=== PATIENT | female | born 2000 | race Caucasian/White ===

== ENCOUNTER 2024-05-23 11:39 | Outpatient (AMB) | payer OTHER, SELFPAY ==
--- NOTE | 2024-05-23 11:46 | AM.OFFWIN_ITS ---
Intake Vital Signs 05/23/24 11:47 Height 5 ft 3.11 in Weight 131 lb 4 oz BMI 23.2 BP 100/60 Blood Pressure Location Rt brachial Position Sitting Respiration 18 Pulse 80 Pulse Source Palpation Temp 98.3 F Temp Source Oral Intake Visit Reasons: Thyroid issues Intake Note: thyroid issuses Patient Tobacco Use Status: Never used Tobacco Is last menstrual period known: Yes Last menstrual period: 05/14/24 Post menopausal: No Patient : No Allergies No Known Allergies Allergy (Verified 05/23/24 11:52) Medication List - Last Reconciled 05/23/24 by LADONNA Rodriguez No Known Home Meds Do you need a note to return to daycare/school/sports/work: No HPI HPI Comments History of Present Illness Details Very pleasant 23-year-old female here today with concerns for enlarged thyroid. Reports that she noted to be mildly enlarged about 1 year ago. However over the last few weeks she reports that it has gotten a little bit bigger. She is having some pain. At times she can feel like she was suffocating. However this is short-lived. She is able to maintain her airway, able to swallow. She does have a family history of thyroid disease in her mother. She denies history of thyroid cancer. She is in between Pediatrics and adult primary care. She did call her apparel pattern maker who advised her to come to the walk-in today. She is not on any medications. Exam Awake alert oriented, no acute distress No lid lag Pharynx within normal limits Trachea midline, thyromegaly, nontender Regular rate and rhythm Plan TSH with reflex T4 today, return to the office next week to establish care and to review the results. Ultrasound of the thyroid will likely need to be ordered at that time as well. Can not do this at the walk-in clinic today. Patient will be called with the TSH results. If a prescription is needed she has asked this to be sent to the [facility] in [place] This note is constructed using voice recognition software. While every effort has been made to ensure accuracy in emergency room nurse, still errors may have been included Sometimes, these errors may affect the content or meaning of the given sentence . 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 Plan . Orders: Orders TSH reflex Free T4 Today E01.0 - Iodine-deficiency related diffuse (endemic) goiter Patient Instructions: Walk-In Care (Urgent Care): We Make it Easy Walk-in for urgent medical issues such as: ? Seasonal Allergies ? Insect Bites ? Cough ? Diarrhea ? Acute Asthma Attacks ? Back, Knee or Joint Pain ? Ear Infection ? Fever without a Rash ? Headaches ? Nausea ? [place], Rash or Skin Irritation ? Sore Throat ? Sports Physicals ? Vomiting Most insurances are accepted. Patients do not need to be part of the [facility] to seek care at the walk-in clinic. Locations [facility] , [place] [address] ? [phone] [facility] Walk-In Care in [place] provides services to ages 18 and over. Open Wednesday-Wednesday: 8 a.m. to 5 p.m. and Wednesday: 9 a.m. to 3 p.m.* *Hours may vary due to staffing availability. To confirm Walk-In Care hours in [place], please call [phone]. [address] [place] [id number] ? [phone] [facility] Walk-In Care in [place] provides services to ages 12 and over. Open Wednesday-Wednesday: 8 a.m. to 5 p.m. Hours may vary due to staffing availability. To confirm Walk-In Care hours in [place], please call [phone]. LABORATORY SERVICES: [facility] ? Primary Location [address] [place] [address] Wednesday through Wednesday 6:00 AM ? 5:00 PM Wednesday 7:00 AM ? 11:00 AM* [phone] The [facility] is centrally located near the front entrance of the [facility] for easy outpatient access. Convenient parking is provided for outpatients. *Hours may vary due to staffing availability. To confirm Laboratory hours for any location, please call [phone]. Offsite Location For your convenience, we offer offsite laboratory draw stations at the following locations: [address], [place] ? [facility] [address], [address], [place] Wednesday through Wednesday 7:30 AM ? 1:00 PM* [phone] *Hours may vary due to staffing availability. To confirm Laboratory hours for any location, please call [phone]. [place] ? [facility] [address] [facility] Wednesday through Wednesday 6:00 AM ? 3:30 PM* Wednesday 6:30 AM ? 3 PM* [phone] *Hours may vary due to staffing availability. To confirm Laboratory hours for any location, please call [phone] [place] [address] Wednesday through Wednesday 7:30 AM ? 4:00 PM* [phone] *Hours may vary due to staffing availability. To confirm Laboratory hours for any location, please call [phone] [place] [address] Wednesday through 9:00 AM ? 4:00 PM* *Hours may vary due to staffing availability. To confirm Laboratory hours for any location, please call [phone]. Appointments are not necessary. Walk-ins are welcome. Like all the departments throughout the [facility], our Lab undergoes frequent reviews to ensure the quality and accuracy of test results, and our staff takes special pride in its status as a nationally accredited facility. Patient Portal: ONE PATIENT. ONE RECORD. BETTER CARE. [facility] has a fully integrated, cutting- edge mobile electronic health information system that has revolutionized the way we care for our patients and manage our organization. This system improves communication and coordination enabling us to provide safe, higher-quality care, and an overall positive experience for staff and patients. Our first priority, as always, is to deliver the highest quality care possible. The system is running in the background supporting that priority. This portal is for all [facility] services and practices. If you are experiencing any technical difficulties with enrolling or logging into the Patient Portal please complete the [facility] Patient Portal Technical Support Form. [facility] now offers a new secure on-line interactive tool for patients to review their health information ? ?Patient Portal. This interactive web portal will enable patients and their families to take an active role in their care by providing easy, secure access to their health information via the internet. The Patient Portal provides patients with instant access to their health information, including laboratory results, medications, allergies, demographic information, visit history, and more. In addition to managing their own care, parents and health care proxies with authorized consent will appreciate the ability to access the records of those individuals for whom they provide care. Please note: if you wish to gain access (Proxy) to another patient?s portal, you will be required to come to the Medical Records Department in person at [facility]. Both the patient giving proxy access and the proxy will need to provide photo identification and complete the appropriate authorization. The Patient Portal also allows track their appointments online. The [facility] Patient Portal also saves patients time by allowing them to submit updates to their demographic and contact information prior to their visits. Portal email notifications will also alert patients to any new activity on their portal, such as test results and new appointments. In order to initially enroll in the [facility] Patient Portal, you will need to enter some required information including the following: * your [facility] Medical Record number * your personal home email address * name * date of Please note: In order to enroll in the [facility] Patient Portal, we need to have your email address on file in your electronic medical record. ?The email address needs to be specific for one person (yourself) in order for your Portal enrollment to be successful. ?You can update your email address in person with our Registration staff when you are registering for a hospital visit. ?Otherwise, you will need to come to the Health Information Management (Medical Records) Department at [facility]. ?We are open from Wednesday ? Wednesday from 7:30 a.m. ? 4:30 p.m. ?You will be required to present a photo id. Once you have successfully enrolled in the Patient Portal, you will receive a one-time user id and password for the Portal, sent to your email address. ?This will allow you to log into the Patient Portal within 99 hrs and reset your own logon id and password, and define personal security questions. ?Once your permanent login and password have been set, you can log into the [facility] Patient Portal at any time via the blue button above or from the Portal Logon button on any page of the [facility] website. [facility] encourage all of our patients to enroll in Patient Portal as it presents a valuable opportunity for patients and their families to actively participate in their care and stay healthy Welcome to [facility]. ?We look forward to working with you. Coding Level of Care Code Est Pt Level 4 (58936) Diagnoses Thyromegaly E01.0
[2024-05-23 11:47] VITALS: BP 100/60; PULSE 80; RESP 18; TEMP 36.8; BMI 23.2
== END 2024-05-23 11:59 | disposition home or self-care (01) ==
PROVIDERS: Visit Provider Nurse Practitioner Family
DX: E01.0 Iodine-deficiency related diffuse (endemic) goiter (principal)
CPT/HCPCS: 99214

== ENCOUNTER 2024-05-23 12:24 | Outpatient (REF) | payer OTHER, SELFPAY ==
[2024-05-23 18:36] LABS: TSH reflex Free T4 0.15 uIU/mL (0.32-4.0)
[2024-05-23 19:29] LABS: Free T4 (Free Thyroxine) 1.07 ng/dL (0.71-1.85)
== END 2024-05-23 12:25 | disposition home or self-care (01) ==
LOC: HO.WFDLDS 12:24
PROVIDERS: Visit Provider Nurse Practitioner Family
DX: E01.0 Iodine-deficiency related diffuse (endemic) goiter (principal)
CPT/HCPCS: 36415; 84439; 84443

== ENCOUNTER 2024-05-26 12:26 | Outpatient (REF) | payer OTHER, SELFPAY ==
[2024-05-27 07:38] LABS: Triiodothyronine T3 Total 106 ng/dL (76-181)
[2024-05-27 09:49] LABS: Thyroid Peroxidase Antibodies 1 IU/mL (<9)
[2024-05-29 21:18] LABS: Thyrotropin Receptor Antibody <1.00 IU/L (<=2.00)
== END 2024-05-26 12:27 | disposition home or self-care (01) ==
LOC: HO.WFDLDS 12:26
PROVIDERS: Visit Provider Nurse Practitioner Family
DX: E01.0 Iodine-deficiency related diffuse (endemic) goiter (principal)
CPT/HCPCS: 36415; 83520; 84480; 86376

== ENCOUNTER 2024-05-31 07:54 | Outpatient (AMB) | payer OTHER, SELFPAY ==
--- NOTE | 2024-05-31 08:01 | MHC.PC.OV ---
Vital Signs 05/31/24 08:08 Height 5 ft 2.99 in Weight 129 lb 8 oz BMI 22.9 BP 112/74 Blood Pressure Location Lt brachial Position Sitting Respiration 12 Pulse 72 Pulse Source Pulse Oximeter Temp 98.4 F Temp Source Oral Pulse Oximetry (%) 99 Oxygen Delivery Method Room Air Intake Visit Reasons: est care/ follow up thyroid Intake Note: New patient visit Boom Cat Operator Required: No Is last menstrual period known: Yes Last menstrual period: 06/12/24 Allergies No Known Allergies Allergy (Verified 05/31/24 08:06) Medication List - Last Reconciled 05/31/24 by Katerin Dong PA-C No Known Home Meds Tobacco use date assessed: 05/31/24 Dental Screening Dental Screen Date: 05/31/24 Did you have a dental visit in the last 12 months?: Yes Did you have a dental problem in the last 6 months where you did not have access to dental care?: No Was dental information given to patient?: Patient has dentist HPI est care/ follow up thyroid HPI Details Patient is a 23-year-old female who presents today to [facility]. Her last physical was with her textile colorist formulator within the year and she reports as normal . She states she did not have labs. Endo: Last TSH was low. Her antibodies were negative. She denies any weight loss, anxiety, fatigue, diarrhea, or palpitations. She does endorse a globus sensation that started about a year ago. She states at the time she did tell her textile colorist formulator about it in had some testing ordered but never did it. She called her textile colorist formulator about 2 weeks ago to tell her about the increase size of her neck/throat and they instructed her to go to a walk-in. She does feel like her thyroid has enlarged over the last year. She can feel it whenever she swallows and she can sometimes feel it at night when she is lying down. It feels like there is something in her throat. Denies any difficulty swallowing, dysphagia, difficulty breathing or witnessed apneic events. -She was sick with a uri prior to these sx being exacerbated and right before her labs. 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 1. Little interest or pleasure in doing things: not at all 2. Feeling down, depressed, or hopeless: not at all 3. Trouble falling or staying asleep, or sleeping too much: not at all 4. Feeling tired or having little energy: not at all 5. Poor appetite or overeating: not at all 6. Feeling bad about yourself - or that you are a failure or have let yourself or your family down: not at all 7. Trouble concentrating on things, such as reading the newspaper or watching television: not at all 8. Moving or speaking so slowly that other people could have noticed. Or the opposite - being so fidgety or restless that you have been moving around a lot more than usual: not at all 9. Thoughts that you would be better off or of hurting yourself in some way: not at all Total score: 0 Depression Screening Interpretation: Negative Depression Screening Done: Yes 56693 - PHQ-9 Billing: Yes Source: Developed by Drs. Darrius Ryan, Shilpi Seals, Quinten Traylor and colleagues, with an educational claude from [employer]. Thrive Questionnaire Date Thrive assessed: 05/31/24 I am a: Patient What is your living situation today?: I have a steady place to live Within the past 12 months, did the food you bought not last and you didn't have the money to get more?: Never true Within the past 12 months, did you worry whether your food would run out before you got money to buy more?: Never true Do you have trouble paying for medicines?: No Do you have trouble getting transportation to medical appointments?: No Do you have trouble paying your heating and electricity bill?: No Do you have trouble taking care of your child, family member or friend?: No Do you have trouble with day-to-day activities such as bathing, preparing meals, shopping, managing finances, etc.?: No Are you currently unemployed and looking for a job?: No Are you interested in more education?: Yes Please select the resources that you would like help with: Education Currently or been in a relationship where the following occur: No concerns reported THRIVE Score: 0 AUDIT C Alcohol Use Questionnaire (AUDIT-C) 1. How often do you have a drink containing alcohol?: Never 3. How often do you have six or more drinks on one occasion?: Never Total Score: 0 GABO-7 AMB Questionnaire GABO-7 Feeling nervous, anxious, or on edge: 0 = Not at all Not being able to stop or control worryin = Not at all Worrying too much about different things: 0 = Not at all Trouble relaxin = Not at all Being so restless that it is hard to sit still: 0 = Not at all Becoming easily annoyed or irritable: 0 = Not at all Feeling afraid as if something awful might happen: 0 = Not at all Total GABO-7 score (0-4 normal; 5-9 mild; 10-14 moderate; 15-21 severe): 0 Source: Developed by Drs. Darrius Ryan, Shilpi Seals, Quinten Traylor and colleagues, with an educational claude from [employer]. GABO-7 Assessment Billing GABO-7 Assessment Tool: GABO-7 Assessment 17783 Physical exam (Primary Care) Vital Signs: Last Vital Signs Temp 98.4 F 05/31/24 08:08 Pulse 72 05/31/24 08:08 Resp 12 05/31/24 08:08 BP 112/74 05/31/24 08:08 Pulse Ox 99 05/31/24 08:08 Oxygen Delivery Method Room Air 05/31/24 08:08 BMI result Body Mass Index 22.9 Tobacco/Smoking Status: Tobacco use Status Tobacco use date assessed 05/31/24 05/31/24 08:11 Patient Tobacco Use Status Never used Tobacco 05/31/24 08:04 e-Cigarette/Vaping Use Never Used 05/31/24 08:11 PHQ-9: PHQ-9 Score PHQ-9: Total score 0 05/31/24 08:19 Depression Screening Interpretation: Negative Thrive Assessment: Date of Thrive Assessment Date Thrive assessed 05/31/24 05/31/24 08:19 Currently or been in a relationship where the following occur: No concerns reported Const Orientation/consciousness: patient oriented x3 HENMT Ears: hearing grossly normal bilaterally Neck Thyroid: diffusely enlarged Lymphatic: no lymphadenopathy noted Resp Auscultation: clear to auscultation bilaterally Cardio Rate: regular rate Rhythm: regular rhythm Heart sounds: S1 normal heart sound present and S2 normal heart sound present GI Inspection: Yes normal to inspection Palpation (GI): Soft to palpation and Other GI palpation findings present (nontender, no cva tenderness) Auscultation: normoactive bowel sounds Rectal Exam - Female: deferred Skin General skin exam: no rashes or lesions noted Neuro General: patient oriented x3, gait normal and no focal motor deficits Results Reviewed Results Reviewed: Laboratory Tests 05/23/24 05/26/24 12:25 12:28 TSH 0.15 L Free T4 1.07 Total T3 106 Assessment and Plan Assessment & Plan (1) 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 will follow up pending tests. she will follow up sooner if anything worsens or changes. (2) Screening cholesterol level: Code(s): Z13.220 - Encounter for screening for lipoid disorders Plan: lipids ordered (3) Encounter to establish care: Code(s): Z76.89 - Persons encountering health services in other specified circumstances Plan: hm reviewed Orders: Orders Thyroid Stimulating Hormone Today E01.0 - Iodine-deficiency related diffuse (endemic) goiter Comprehensive [place]. Panel Fast Today E01.0 - Iodine-deficiency related diffuse (endemic) goiter US thyroid Today E01.0 - Iodine-deficiency related diffuse (endemic) goiter Free T4 (Free Thyroxine) Today E01.0 - Iodine-deficiency related diffuse (endemic) goiter Lipid Panel Today E01.0 - Iodine-deficiency related diffuse (endemic) goiter Complete Blood Count Auto Diff Today E01.0 - Iodine-deficiency related diffuse (endemic) goiter Coding Level of Care Code New Pt Level 3 (45863) Complex EM visit Add On G2211 Diagnoses Thyromegaly E01.0 Screening cholesterol level Z13.220 Encounter to establish care Z76.89 Additional Codes GABO-7 Assessment Billing - GABO-7 Assessment Tool: GABO-7 Assessment 35488 ([id number])
[2024-05-31 08:08] VITALS: BP 112/74; PULSE 72; RESP 12; TEMP 36.9; O2SAT 99; BMI 22.9
== END 2024-05-31 08:33 | disposition home or self-care (01) ==
PROVIDERS: PCP Physician Assistant; Visit Provider Physician Assistant
DX: E01.0 Iodine-deficiency related diffuse (endemic) goiter (principal); Z13.220 Encounter for screening for lipoid disorders; Z76.89 Persons encountering health services in other specified circumstances
CPT/HCPCS: 99213; G2211

== ENCOUNTER 2024-05-31 08:34 | Outpatient (REF) | payer OTHER, SELFPAY ==
[2024-05-31 11:09] LABS: MANUAL DIFF FLAG NO
[2024-05-31 11:28] LABS: Basophils Percent Auto 0.5 % (0-2); Eosinophils Absolute Auto 0.2 X10*3/uL (0.0-0.4); Eosinophils Percent Auto 2.7 % (0-4); Hematocrit 37.2 % (37.0-47.0); Hemoglobin 12.4 g/dl (12.0-16.0); Lymphocytes Absolute Auto 2.6 X10*3/uL (1.2-4.9); Lymphocytes Percent Auto 40.8 % (20-40); Mean Corpuscular HGB Conc 33.3 g/dl (31.0-35.0); Mean Corpuscular Hemoglobin 28.4 pg (27.0-33.0); Mean Corpuscular Volume 85.3 fL (80.0-98.0); Mean Platelet Volume 10.8 fL (9.4-12.3); Monocytes Absolute Auto 0.5 X10*3/uL (0.1-1.2); Monocytes Percent Auto 8.3 % (2-11); Neutrophils Percent Auto 47.7 % (45-73); Platelet Count 286 X10*3/uL (160-400); Red Blood Count 4.36 X10*6/uL (4.20-5.50); Red Cell Distribution Width 12.3 % (11.0-16.0); White Blood Count 6.3 X10*3/uL (4.8-10.8)
[2024-05-31 11:53] LABS: Alanine Aminotransferase 15 U/L (0-31); Albumin Level 4.4 g/dL (3.5-5.0); Alkaline Phosphatase 50 U/L (39-117); Anion Gap 10 (12-20); Aspartate Amino Transferase 17 U/L (5-31); Bilirubin Total 0.4 mg/dL (0.0-1.0); Blood Urea Nitrogen 12 mg/dL (9-16); Calcium 9.3 mg/dL (8.4-10.2); Carbon Dioxide 28 mmol/L (22-29); Chloride 108 mmol/L (96-108); Cholesterol 201 mg/dL (<200); Estimated Glomerular Filt Rate > 60; Glucose Fasting 84 mg/dL (60-99); HDL Cholesterol 49 mg/dL (>40); LDL Cholesterol Calculated 138 mg/dL (<100); Potassium 3.7 mmol/L (3.3-5.1); Sodium 142 mmol/L (135-145); Total Protein 7.2 g/dL (6.5-8.0); Triglycerides 71 mg/dL (<150)
[2024-05-31 11:59] LABS: Free T4 (Free Thyroxine) 0.93 ng/dL (0.71-1.85); Thyroid Stimulating Hormone 0.28 uIU/mL (0.32-4.0)
== END 2024-05-31 08:35 | disposition home or self-care (01) ==
LOC: HO.WFDLDS 08:34
PROVIDERS: Visit Provider Physician Assistant
DX: E01.0 Iodine-deficiency related diffuse (endemic) goiter (principal)
CPT/HCPCS: 36415; 80053; 80061; 84439; 84443; 85025

== ENCOUNTER 2024-06-14 08:07 | Outpatient (REF) | payer OTHER, SELFPAY ==
--- NOTE | ~2024-06-14 | US_ITS ---
EXAMINATION: US THYROID CLINICAL INFORMATION: Goiter. COMPARISON: None available. TECHNIQUE: Linear transducer grayscale and color Doppler examination with attention to the region of the thyroid. FINDINGS: SIZE: Measurements of the thyroid lobes and nodules are given in sagittal, anteroposterior and transverse dimensions respectively. Right Thyroid Lobe: 5.7 x 1.5 x 1.9 cm, volume 7.7 mL. Parenchyma: The gland echotexture is mildly heterogeneous. Thyroid vascularity is normal. Left Thyroid Lobe: 5.7 x 1.4 x 2.0 cm, volume 7.7 mL. Parenchyma: The gland echotexture is mildly heterogeneous. Thyroid vascularity is normal. Isthmus: 0.4 cm in maximum AP dimension. Estimated total number of nodules greater than or equal to 1 cm: None. Master Baker nodules are described as follows: 1. Location: Right mid to lower. Size: 0.5 x 0.3 x 0.5 cm, volume 0.03 mL. Nodule characteristics: Composition: Spongiform (0). Echogenicity: Shape: Margins: Echogenic Foci: ACR TI-RADS total points: 0 ACR TI-RADS category: 1 2. Location: Right lower. Size: 0.4 x 0.3 x 0.4 cm, volume 0.03 mL. Nodule characteristics: Composition: Spongiform (0). Echogenicity: Shape: Margins: Echogenic Foci: ACR TI-RADS total points: 0 ACR TI-RADS category: 1 NODES: Right cervical node measures 2.0 x 0.3 x 1.2 cm. US/US thyroid IMPRESSION: Right thyroid nodules, largest 0.5 cm TR 1. Right cervical node measures 2.0 x 0.3 x 1.2 cm. ACR TI-RADS RECOMMENDATION REFERENCE: Ultrasound-guided fine-needle aspiration, followup ultrasound, no further follow up. * TR1 (0 point) and TR2 (2 points): No FNA or follow up. * TR3 (3 points): FNA if more than or equal to 2.5 cm in maximum dimension, followup ultrasound in 1, 3 and 5 years if 1.5 to 2.4 cm in maximum dimension. * TR4 (4-6 points): FNA if more than or equal to 1.5 cm in maximum dimension, followup ultrasound in 1, 2, 3 and 5 years if 1 to 1.4 cm in maximum dimension. * TR5 (more than or equal to 7 points): FNA if more than or equal to 1 cm in maximum dimension, followup ultrasound every year for 5 years if 0.5 to 0.9 cm in maximum dimension. * TR3, TR4 or TR5 nodules that are below the size threshold for followup receive no follow up. Electronically signed by: Isela Dc MD 06/28/2024 10:22 AM EDT
== END 2024-06-14 08:08 | disposition home or self-care (01) ==
LOC: HO.US 08:07
PROVIDERS: PCP Physician Assistant; Visit Provider Physician Assistant
DX: E01.0 Iodine-deficiency related diffuse (endemic) goiter (principal)
CPT/HCPCS: 76536

== ENCOUNTER 2024-06-23 07:51 | Outpatient (AMB) | payer OTHER, SELFPAY ==
[2024-06-23 07:58] VITALS: BP 114/74; PULSE 65; BMI 23.3
--- NOTE | 2024-06-23 07:58 | A.OFFVIS_ITS ---
Vital Signs 06/23/24 07:58 Height 5 ft 3 in Weight 131 lb 6.328 oz BMI 23.3 BP 114/74 Blood Pressure Location Rt brachial Position Sitting Pulse 65 Pulse Source Pulse Oximeter Intake Visit Reasons: Thyrotoxicosis/CONFIRMED Intake Note: New patient present today for Thyrotoxicosis office visit. Laboratory Administrative Director Required: No Accompanied by: Self / Same As Patient Allergies No Known Allergies Allergy (Verified 06/23/24 07:59) Medication List - Last Reconciled 06/23/24 by Paula English MD No Known Home Meds HPI Comments Details: 23-year-old female coming in today for initial evaluation of subclinical hyperthyroidism. Labs from 05/23/2024 showed low TSH of 0.15, with normal free T4 of 1.07. Total T3 from 05/26/2024 was also normal at 106. Repeat labs from 05/31/2024 showed low TSH of 0.28, with normal free T4 of 0.93. TPO and TSH receptor antibodies were negative. Patient does describe that she has been having some prominence/fullness in her neck for about 1 year. Over the past 3-4 weeks she has also noticed increase in the size of her neck. She feels this has worsened over the past year. She feels a globus sensation on swallowing and a pressure sensation when she lays down flat at night. Denies any dysphagia, odynophagia, difficulty breathing. Sings in the choir feels voice is changed a couple of years. Hard to sing. She does endorse that she had a upper respiratory infection with cough and sore throat prior to these symptoms being exacerbated over the last few weeks, around the time she had her blood work done. Denies exposure to contrast. Mother has thyroid nodules. No family history of thyroid cancer. No history of head or neck radiation. Born [place] raised [place] the [place], no exposure to radiation events. No biotin. No exposure to lithium or amiodarone. Does report intermittent palpitations for the past year. Very seldom has noticed tremors with the palpitations. Denies has regular bowel movements, no increased anxiety. Denies fatigue. No weight changes. Regular periods. No fractures. Thyroid ultrasound done 06/14/2024, report not available yet but I reviewed the images and she does have an enlarged thyroid with her each lobe being around 5.7 cm in the longest dimension. Her thyroid overall looks homogeneous, I do not see any increased vascularity. There are 2 nodules noted in the right lobe, with the right mid lobe nodule measuring 0.5 X 0.3 X 0.5 cm which is mixed cystic solid, hypoechoic, well-defined, not taller than wide. There is another right lower lobe nodule which is cyst measuring 0.4 X 0.3 X 0.4 cm. Past medical history None Past surgical history None Family history Mother: thyroid nodules No cancers Social history Lives with parents in college studying graphic design Never smoker No drug use no alcohol use Review of systems Constitutional: no fevers, chills or weight loss HEENT: no changes in vision Cardiac: intermittent palpitations. Pulmonary: No SOB GI:No abdominal pain, no nausea or vomiting, no anorexia, no blood in stool : no burning micturition, dysuria or increase in urinary frequency Neurologic: No dizziness, no weakness in extremities MSK: no back pain or joint stiffness Physical exam General: sitting comfortably in no acute distress HEENT: normocephalic/atraumatic, EOM intact, moist oral mucosa Neck: supple, symmetrical, prominent thyroid , no dorsocervical or supraclavicular fat pads Cardiac: normal heart sounds Pulm: normal breath sounds B/L, no added breath sounds Abd: not distended, no tenderness Extremities: no edema, no signs of myxedema Neuro: AAO x3, Speech: normal, no facial droop, moving all 4 extremities Skin: no rash [facility] Medical History (Updated 06/23/24 @ 08:54 by Paula English MD) Goiter colloid, toxic, nodular Subclinical hyperthyroidism Surgical History No pertinent past surgical history Family History Mother HTN (hypertension) Thyroid disorder Social History Housing: House Patient Tobacco Use Status: Never used Tobacco e-Cigarette/Vaping Use: Never Used Current occupational status: employed and student 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 Current occupational exposures/hazards: No Cognitive needs: No Hearing needs: No Vision needs: No Physical Exam Vital Signs: BMI result Body Mass Index 23.3 Results Reviewed Results Reviewed: Laboratory Tests 05/23/24 05/26/24 05/31/24 12:25 12:28 08:35 TSH 0.15 L 0.28 L Free T4 1.07 0.93 Total T3 106 Thyroid Peroxidase Ab 1 TSH Receptor Ab <1.00 Assessment & Plan Assessment & Plan (1) Subclinical hyperthyroidism: Code(s): E05.90 - Thyrotoxicosis, unspecified without thyrotoxic crisis or storm Category: Medical Plan: Patient with no family history of thyroid cancer, with no personal history of head or neck radiation, who has been having compressive symptoms with enlarged thyroid for the past 1 year. Ultrasound of the thyroid, report not read, however I reviewed the images myself and it shows she has an enlarged thyroid, with subcentimeter nodules on the right side. These do not meet crietria for FNA. She was also noted to have a low TSH with normal free T4 consistent with subclinical hyperthyroidism. However most recent labs were done around the same time that she was having a URI, hence we will repeat her labs in 6 weeks. While she did not have any detectable TPO or TSH receptor antibodies, I will also do a TSI antibody level to see if she has underlying autoimmune thyroid disease. Though seems unlikely given that her thyroid ultrasound does not show any increased vascularity, she does not have any overt hyperthyroid symptoms either. She could possibly have a toxic nodular goiter resulting in subclinical hyperthyroidism, she is already ordered for a thyroid uptake and scan. We will follow these results. She is scheduled to have this in July, I will schedule her for a follow up at the end of July to discuss results. Since she does have significant symptoms from her enlarged thyroid, I did discuss with her that definitive therapy for toxic nodular goiter, with compressive symptoms would involve total thyroidectomy which then subsequently results and lifelong need of thyroid medicine. However at this point we need to wait and see if her labs normalize a trend towards normal and how significant her symptoms are in a few weeks. Plus need to wait for the results of the thyroid uptake and scan which will will help confirm her diagnosis. Her heart rate today is normal, she does not have any significant hyperthyroid symptoms to require any beta-adrenergic blockers. Plan: -follow up end of July to discuss results of thyroid uptake and scan scheduled in July 2024 -ordered free T4, total T3, TSH, TSI antibodies to be done in 6 weeks (2) Goiter colloid, toxic, nodular: Code(s): E05.20 - Thyrotoxicosis with toxic multinodular goiter without thyrotoxic crisis or storm Category: Medical Plan: see above Plan I spent 45 minutes in reviewing the record, seeing the patient and documenting in the medical record. Orders: Orders NM thyroid w uptake 06/01/24 E01.0 - Iodine-deficiency related diffuse (endemic) goiter, E05.90 - Thyrotoxicosis, unspecified without thyrotoxic crisis or storm Thyroid Stimulating Hormone 6 Weeks E01.0 - Iodine-deficiency related diffuse (endemic) goiter, E05.90 - Thyrotoxicosis, unspecified without thyrotoxic crisis or storm Free T4 (Free Thyroxine) 6 Weeks E01.0 - Iodine-deficiency related diffuse (endemic) goiter, E05.90 - Thyrotoxicosis, unspecified without thyrotoxic crisis or storm Triiodothyronine T3 Total 6 Weeks E01.0 - Iodine-deficiency related diffuse (endemic) goiter, E05.90 - Thyrotoxicosis, unspecified without thyrotoxic crisis or storm Thyroid Stimulating Immunoglob 6 Weeks E01.0 - Iodine-deficiency related diffuse (endemic) goiter, E05.90 - Thyrotoxicosis, unspecified without thyrotoxic crisis or storm Patient Instructions: Do blood work in 6 weeks Do the thyroid uptake and scan I will see you back in end of July to discuss these results Coding Level of Care Code New Pt Level 4 (88781) Diagnoses Subclinical hyperthyroidism E05.90 Goiter colloid, toxic, nodular E05.20 Time Spent (min) 45
== END 2024-06-23 08:33 | disposition home or self-care (01) ==
PROVIDERS: PCP Physician Assistant; Visit Provider Student in an Organized Health Care Education/Training Program
DX: E05.20 Thyrotoxicosis with toxic multinodular goiter without thyrotoxic crisis or storm (principal)
CPT/HCPCS: 99204

== ENCOUNTER → 2024-06-23 07:51 | Outpatient (BNVA) | payer OTHER, SELFPAY | PROVIDERS: PCP Physician Assistant; Visit Provider Student in an Organized Health Care Education/Training Program | DX: E05.20 Thyrotoxicosis with toxic multinodular goiter without thyrotoxic crisis or storm (principal); E01.0 Iodine-deficiency related diffuse (endemic) goiter | CPT/HCPCS: 99202 ==

== ENCOUNTER 2024-11-21 08:08 | Outpatient (AMB) | payer OTHER, SELFPAY ==
--- OUTSIDE RECORDS SUMMARY | 2024-11-21 08:15 | XMS_ITS | Encounter Summary ---
Author Organization [facility] Address [address] [place] [id number] Phone Care Team Providers Care Clinical Coordinator Name Role Phone Grecia Pete MD Primary Care Provider [phone] Reason for Visit * Reason Comments Med Refill Encounter Details Date Type Department Care Team (Late st Contact Info) Description 02/20/2022 [facility]ill [facility] [address] [address] Vivian Nunez NP Other atopic dermatitis Social History Tobacco Use Types Packs/Day Years Used Date Smoking Tobacco: Never Alcohol Use Standard Drinks/Week Comments Never 0 (1 standard drink = 0.6 oz pur e alcohol) Hunger/Food Answer Date Recorded In the last 12 months, did y ou or your family ever eat less than you felt you should because there wasn't enough money for food? No 12/02/2020 Stable Housing Answer Date Recorded Are you worried that in the next 2 months you may not have stable housing? No 12/02/2020 Transportation Concerns Answer Date Rec orded In the last 12 months, have you or your family ever had to go without healthcare because you didn't have a way to get there? No 12/02/2020 Hazards in Home Answer Date Recorded Think about the place you li ve. Do you have problems with any of the following? Pests (mice or roaches), mold, no/not working smoke detectors, water leaks, no window guards. No 2020 Financing Utilities Answer Date Recorde d In the last 12 months, has t he electric, gas, oil, or water company threatened to shut off your services in your home? No 12/02/2020 Safety at Home Answer Date Recorded Are you or your family worried about feeling saf e in your home? No 12/02/2020 Outside Support Answer Date Recorded Do you feel that you need mo re support from other people or programs to help you care for yourself or your family? No 12/02/2020 Understanding Health Concerns Answer Da te Recorded Do you need help understandi ng your or your child's healthcare needs (diagnosis, medications, plan, etc.)? No 12/02/2020 Financing Health Concerns Answer Date R ecorded In the last 12 months, was t here a time when your child needed to see a doctor or get medications or supplies but could not because of cost? No 12/02/2020 Missing School or Work Answer Date Elpidio rded Did you or your child miss s chool or work because of a health problem that could have been avoided? No 12/02/2020 Comments No Sex and Gender Information Value Date Recorded Sex Assigned at Female 12/02/2020 9:08 AM EST Legal Sex Female 6:11 PM EDT Gender Identity Female 12/02/2020 9:08 AM EST Sexual Orientation Straight 12/02/2020 9: 08 AM EST documented as of this encounter Plan of Treatment Not on file documented as of this encounter Visit Diagnoses Diagnosis Other atopic dermatitis documented in this encounter Care Teams Clinical Coordinator Relationship Specialty Start Date End Date Grecia Pete MD [address] [place] [address] PCP - General Pediatrics 01/08/23 documented as of this encounter
--- OUTSIDE RECORDS SUMMARY | 2024-11-21 08:15 | XMS_ITS | Encounter Summary ---
Author Organization [facility] Address [address] [place] [address] Phone Care Team Providers Care Car Shagger Name Role Phone Grecia Pete MD Primary Care Provider [phone] Reason for Visit * Reason Comments ED Admission Encounter Details Date Type Department Care Team (Late st Contact Info) Description 11/02/2024 8:56 AM EST - 11/02/2024 11:12 AM [facility] Hospital Encounter [facility] - Patient Ping Social History Tobacco Use Types Packs/Day Years Used Date Smoking Tobacco: Never Alcohol Use Standard Drinks/Week Comments Never 0 (1 standard drink = 0.6 oz pur e alcohol) Hunger/Food Answer Date Recorded In the last 12 months, did y ou or your family ever eat less than you felt you should because there wasn't enough money for food? No 07/12/2023 Stable Housing Answer Date Recorded Are you worried that in the next 2 months you may not have stable housing? No 07/12/2023 Transportation Concerns Answer Date Rec orded In the last 12 months, have you or your family ever had to go without healthcare because you didn't have a way to get there? No 07/12/2023 Hazards in Home Answer Date Recorded Think about the place you li ve. Do you have problems with any of the following? Pests (mice or roaches), mold, no/not working smoke detectors, water leaks, no window guards. No 2022 Financing Utilities Answer Date Recorde d In the last 12 months, has t he electric, gas, oil, or water company threatened to shut off your services in your home? No 07/12/2023 Safety at Home Answer Date Recorded Are you or your family worried about feeling saf e in your home? No 07/12/2023 Outside Support Answer Date Recorded Do you feel that you need mo re support from other people or programs to help you care for yourself or your family? No 07/12/2023 Understanding Health Concerns Answer Da te Recorded Do you need help understandi ng your or your child's healthcare needs (diagnosis, medications, plan, etc.)? No 07/12/2023 Financing Health Concerns Answer Date R ecorded In the last 12 months, was t here a time when your child needed to see a doctor or get medications or supplies but could not because of cost? No 07/12/2023 Missing School or Work Answer Date Elpidio rded Did you or your child miss s chool or work because of a health problem that could have been avoided? No 07/12/2023 Comments No Sex and Gender Information Value Date Recorded Sex Assigned at Female 12/02/2020 9:08 AM EST Legal Sex Female 6:11 PM EDT Gender Identity Female 12/02/2020 9:08 AM EST Sexual Orientation Straight 12/02/2020 9: 08 AM EST documented as of this encounter Medications at Time of Discharge cetirizine 10 MG tablet Take 10 mg by mouth once daily. 0 11/29/2018 hydrocortisone 1 % ointmentIndicati ons:Other atopic dermatitis Apply topically 2 (two) times a day as needed for irritation or rash. Do not use for more than 2 weeks at a time 25 g 1 05/21/2022 triamcinolone 0.1 % creamIndications :Flexural eczema 80 grams of the triamcinolone in 240 mg of the hydrophilic base, total 320 grams. Apply daily until better 320 g 1 01/19/2019 triamcinolone 0.1 % ointmentIndicati ons:Flexural eczema Apply topically 2 (two) times a day as needed for irritation. Apply to eczema on arms, neck, and chest. Do not use for more than 2 weeks at a time 30 g 2 05/21/2022 documented as of this encounter Plan of Treatment Not on file documented as of this encounter Visit Diagnoses Not on filedocumented in this encounter Care Teams Car Shagger Relationship Specialty Start Date End Date Grecia Pete MD [address] [place] [address] PCP - General Pediatrics 01/08/23 documented as of this encounter
--- OUTSIDE RECORDS SUMMARY | 2024-11-21 08:15 | XMS_ITS | Encounter Summary ---
Author Organization [facility] Address [address] [place] [address] Phone Care Team Providers Care Garment Presser Name Role Phone Grecia Pete MD Primary Care Provider [phone] Encounter Details Date Type Department Care Team (Late st Contact Info) Description 03/13/2018 Conversion Encounter [facility] [id number] [place] [address] Rosanne Rick MD [address] [place] [address] Social History Tobacco Use Types Packs/Day Years Used Date Smoking Tobacco: Never Assessed Comments Unknown Sex and Gender Information Value Date Recorded Sex Assigned at Female 12/02/2020 9:08 AM EST Legal Sex Female 6:11 PM EDT Gender Identity Female 12/02/2020 9:08 AM EST Sexual Orientation Straight 12/02/2020 9: 08 AM EST documented as of this encounter Plan of Treatment Not on file documented as of this encounter Visit Diagnoses Not on filedocumented in this encounter Care Teams Garment Presser Relationship Specialty Start Date End Date Grecia Pete MD [address] [place] [address] PCP - General Pediatrics 01/08/23 documented as of this encounter
--- OUTSIDE RECORDS SUMMARY | 2024-11-21 08:15 | XMS_ITS | Clinical Summary ---
Author Organization [facility] Address [address] [place] [address] Phone Care Team Providers Care Flower Shop Laborer/Designer Name Role Phone Grecia Pete MD Primary Care Provider [phone] Allergies Active Allergy Reactions Criticality Noted Date Comments Food Low 01/19/2019 [place],strawberry, pineapple make her eczema flare up; no rashes, no SOB Medications cetirizine 10 MG tablet Take 10 mg by mouth once daily. 0 9 Active triamcinolone 0.1 % creamIndicatio ns:Flexural eczema 80 grams of the triamcinolone in 240 mg of the hydrophilic base, total 320 grams. Apply daily until better 320 g 1 9 Active Additional Information Patient not taking.Reported on 06/03/2023 triamcinolone 0.1 % ointmentIndica tions:Flexural eczema Apply topically 2 (two) times a day as needed for irritation. Apply to eczema on arms, neck, and chest. Do not use for more than 2 weeks at a time 30 g 2 2 Active Additional Information Patient not taking.Reported on 06/03/2023 hydrocortisone 1 % ointmentIndica tions:Other atopic dermatitis Apply topically 2 (two) times a day as needed for irritation or rash. Do not use for more than 2 weeks at a time 25 g 1 2 Active Additional Information Patient not taking.Reported on 06/03/2023 Active Problems Problem Noted Date Diagnosed Date Thyromegaly 07/12/2023 Overview (07/12/2023): Diffusely and slightly enlarged, no discrete nodules Assessment & Plan (07/12/2023 10:55 AM EDT): If normal TSH, would likely US. If all well, would have ENT look at vocal cords. Flexural eczema 12/02/2020 Assessment & Plan (12/02/2020 9:26 AM EST): Copious moisturizing, avoid excessive bathing, hot water and soaps. Use hydrocortisone when there is skin cracking Vaccination refused by patient 12/02/2020 Assessment & Plan (07/12/2023 10:53 AM EDT): No interest yet. Assessment & Plan (12/02/2020 9:21 AM EST): Refused all due imms today- AAP form signed Juvenile idiopathic scoliosis of thoracic region 12/23/2017 Overview (01/09/2019): Case closed by [facility]: 26 degree curve, stable, in a skeletally mature girl Assessment & Plan (07/12/2023 10:52 AM EDT): Minimal asymmetry on Wu', occasional back pain, wants to see the Chiropractor and I agreed Assessment & Plan (06/03/2023 2:55 PM EDT): Will make referral to chiropractic provider as requested. Assessment & Plan (12/02/2020 9:21 AM EST): Continue core strengthening Assessment & Plan (01/19/2019 12:05 PM EDT): No changes, no back apin, not cosmetically dipleasing in terms of shoulder heiight, but hip crease is a little asymmetrical Resolved Problems Problem Noted Date Diagnosed Date Resolved Date Seborrheic dermatitis of scalp 12/23/2017 12/02/2020 Assessment & Plan (01/19/2019 12:04 PM EDT): This has not recurred in a while Encounters Date Type Department Care Team Description 11/02/2024 8:56 AM EST - 11/02/2024 11:12 AM EST Hospital Encounter [facility] - Patient Xi from Last 3 Months Immunizations Name Administration Dates Next Due DTaP 06/13/2004,08/07/2003,06/05/2003 ,02/15/2003 Hep B, ped/adol 09/18/2003,01/11/2003,2002 Hib (PRP-T) 04/18/2004,08/07/2003,07/17/2003 ,05/29/2003 IPV 06/13/2004,06/05/2003,02/15/2003 MMR 04/18/2004 No Vaccine Administered 12/23/2017,12/21/2016, Pneumococcal Conjugate 08/24/2003,07/17/2003,02/2003 Varicella 01/10/2004 Family History Medical History Relation Name Comments Hypertension Brother 1 Magdi elevated BP wit fatumaut diagnosis of HT No Known Problems Brother 2 Jakob No Known Problems Brother 3 Michael No Known Problems Father Al No Known Problems Maternal Grandfather No Known Problems Maternal Grandmother No Known Problems Mother Lyugmila No Known Problems Paternal Grandfather No Known Problems Paternal Grandmother No Known Problems Sister 1 Tavifa No Known Problems Sister 2 Lilian No Known Problems Sister 3 Shahana No Known Problems Sister 4 Pau No Known Problems Sister 5 Alida Relation Name Status Comments Brother 1 Magdi Alive Brother 2 Jakob Alive Bee sting aller gy Brother 3 Michael Alive Father Al Alive Maternal Grandfather Alive Maternal Grandmother Alive Mother Lyugmila Alive Paternal Grandfather Alive Paternal Grandmother Alive Sister 1 Tavifa Alive Sister 2 Lilian Alive Sister 3 Shahana Alive Sister 4 Pau Alive Caries Sister 5 Alida Alive [place] Social History Tobacco Use Types Packs/Day Years Used Date Smoking Tobacco: Never Tobacco Cessation:Counseling Given: Yes Alcohol Use Standard Drinks/Week Comments Never 0 [...] Orientation Straight 12/02/2020 9: 08 AM EST Last Filed Vital Signs Vital Sign Reading Time Taken Comments Blood Pressure 126/90 07/12/2023 10:24 AM EDT Pulse - - Temperature 36.7 ??C (98 ??F) 05/21/2022 2:10 PM EDT Respiratory Rate - - Oxygen Saturation - - Inhaled Oxygen Concentration - - Weight 59 kg (130 lb) 07/12/2023 10:24 AM EDT Height 161 cm (5' 3.39 ) 07/12/2023 10:24 AM EDT Body Mass Index 22.75 07/12/2023 10:24 AM EDT Plan of Treatment Health Maintenance Due Date Last Done Comments IPV Vaccines (4 of 4 - 4-dose series) 2006 06/13/2004, 06/05/2003, 02/15/2003 Varicella Vaccines (2 of 2 - 2-dose childhood series) 2006 01/10/2004 DTaP,Tdap,and Td Vaccines (5 - Tdap) 2013 06/13/2004, 08/07/2003, 06/05/2003, Additional history exists HPV Vaccines (1 - 3-dose series) 2017 Men B Vaccine (1 of 2 - Standard) 2018 Influenza Vaccines (#1) 2024 COVID-19 Vaccine () 06/25/2024 Pneumococcal Vaccine Aged Out 08/24/2003, 07/17/2003, 05/29/2003 No longer eligible based on patient's age to complete this topic Hepatitis B Vaccines Completed 09/18/2003, 01/11/2003, 2002 HIB Vaccines Completed 04/18/2004, 07/25, 07/17/2003, Additional history exists MMR Vaccines Completed 04/18/2004 Hepatitis A Vaccines Aged Out No long er eligible based on patient's age to complete this topic Meningococcal Vaccine Aged Out No arias sharon eligible based on patient's age to complete this topic Insurance [facility] NON PCC [facility] [employer] ACO [facility] NON PCC Care Teams Flower Shop Laborer/Designer Relationship Specialty Start Date End Date Grceia Pete MD [address] [place] [address] PCP - General Pediatrics 01/08/23
--- NOTE | 2024-11-21 08:57 | AM.OFFWIN_ITS ---
Intake Vital Signs 3 11/21/24 09:01 Height 5 ft 3 in Weight 140 lb 8 oz BMI 24.9 BP 102/66 Blood Pressure Location Lt brachial Position Sitting Respiration 12 Pulse 90 Pulse Source Pulse Oximeter Temp 97.1 F Temp Source Oral Pulse Oximetry (%) 99 Oxygen Delivery Method Room Air Intake Visit Reasons: ezema on face Intake Note: Patient complaining of rash on her face since Sep. Patient Tobacco Use Status: Never used Tobacco Allergies No Known Allergies Allergy (Verified 11/21/24 09:28) Medication List - Last Reconciled 11/21/24 by [facility] No Known Home Meds Do you need a note to return to daycare/school/sports/work: No HPI HPI Comments 2 History of Present Illness0 Details 23-year-old female here today at the [facility] with chief complaints of a disseminated rash that is over her face and over her anterior and posterior trunk and bilat arms. 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 She reports that she has not had any exposure to citrus or anything new to include detergents. She denies any travel. She reports that her breathing is normal. She was able to manage her secretions. She has been seen in the emergency room several times in prescribe prednisone. She has not taken the prednisone as she is afraid of an allergic reaction as she responded poorly to topical triamcinolone in the past. She is taking [id number] antihistamines only however this is not buying her benefit. She was referred to a local tv host, she is unsure of the name, however they do not accept her insurance. She reports that she was seen by an relocation manager a long time ago. See pictures below. The plan will be to call on to Dermatology and see if they can get her in immediately. [facility], [place] [facility] and [place] [facility] were all called. None of them take her insurance. A new referral was placed out to the [place] area and the staff is working on seeing if they will take her insurance and trying to coordinate a referral. The patient will be contacted and made aware, she can also work with her insurance to see who is covered and notify our office so that we can place a referral for her. In the meanwhile she does refused to take any medications as she was afraid of allergic reaction. Educated on reasons to seek additional care to include emergency room. Exam: awake alert NAD RRR LS CTAB Managing secretions Not pictured is antererior trunk, rash worse over bilat breasts Total time spent caring for the patient today was 40 minutes. This includes time spent before the visit reviewing the chart, time spent during the visit, and time spent after the visit on documentation, reviewing laboratory results, diagnostic imaging, medications, performing a medically necessary evaluation, counseling on diagnoses, care coordination, ordering appropriate tests, ordering appropriate medications, review of tests performed by other providers, reporting test results with the patient, communication with other healthcare providers. [facility] Medical History (Updated 11/21/24 @ 09:34 by Kaylee Hardy, 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 Orders: Referrals 2 Dermatology Referral R21 - Rash and other nonspecific skin eruption Coding Level of Care Code Est Pt Level 5 (69950) Diagnoses Severe rash R21
[2024-11-21 09:01] VITALS: BP 102/66; PULSE 90; RESP 12; TEMP 36.2; O2SAT 99; BMI 24.9
== END 2024-11-21 16:24 | disposition home or self-care (01) ==
LOC: HO.HMCWIW 08:08
PROVIDERS: PCP Physician Assistant; Visit Provider Nurse Practitioner Family
DX: R21 Rash and other nonspecific skin eruption (principal)

== ENCOUNTER → 2024-11-21 08:08 | Outpatient (BNVA) | payer OTHER, SELFPAY | PROVIDERS: PCP Physician Assistant; Visit Provider Nurse Practitioner Family | DX: R21 Rash and other nonspecific skin eruption (principal) | CPT/HCPCS: 99212 ==